=== PATIENT | female | born 1965 | race Caucasian/White ===

== ENCOUNTER 2022-06-21 17:23 | Inpatient (IN) ==
[2022-06-20] MEDS: Nicotine 21 MG PATCH.TD24 TD PRN (09:51)
[2022-06-20] MEDS: Aspirin 81 MG TAB.CHEW PO SCH (09:51)
[2022-06-20] MEDS: Azithromycin 500 MG in 0.9 % Sodium Chloride 250 ML IVPB SCH (09:52)
[2022-06-20] MEDS: Budesonide/Formoterol 80/4.5 1 PUFF INH IH SCH (10:03)
[2022-06-20] MEDS: Ipratropium/Albuterol Neb 3 ML IH PRN ×3 (10:04→20:30)
[2022-06-20] MEDS: MethylPREDNISolone 40 MG/ML VIAL IVP SCH ×3 (12:31→23:21)
[2022-06-20] MEDS: Acetaminophen 325 MG TABLET PO PRN ×2 (12:31→19:33)
[2022-06-20 17:48] LABS: Adenovirus Not Detected (Not Detect); Bordetella Pertussis Not Detected (Not Detect); Chlamydophila pneumoniae Not Detected (Not Detect); Coronavirus 229E Not Detected (Not Detect); Coronavirus HKU1 Not Detected (Not Detect); Coronavirus NL63 Not Detected (Not Detect); Coronavirus OC43 Not Detected (Not Detect); Human Metapneumovirus Not Detected (Not Detect); Human Rhinovirus/Enterovirus Not Detected (Not Detect); Influenza A Subtype 2009 H1 Not Detected (Not Detect); Influenza B Not Detected (Not Detect); Mycoplasma pneumoniae Not Detected (Not Detect); Parainfluenza Virus 1 Not Detected (Not Detect); Parainfluenza Virus 2 Not Detected (Not Detect); Parainfluenza Virus 3 Not Detected (Not Detect); Parainfluenza Virus 4 Not Detected (Not Detect); Respiratory Syncytial Virus Not Detected (Not Detect); SARS-CoV-2 Not Detected (Not Detect)
[2022-06-21] MEDS: *HR* Enoxaparin 40 MG/0.4 ML SYRINGE SQ SCH (05:19)
[2022-06-21] MEDS: MethylPREDNISolone 40 MG/ML VIAL IVP SCH ×2 (05:19→14:08)
[2022-06-21 05:45] LABS: Basophils % 0.1 %; Hematocrit 38.3 % (35.3-44.9); Hemoglobin 12.9 g/dL (11.5-15.4); Immature Granulocytes % 0.7 % (0-4); Lymphocytes # 0.8 K/mcL (0.6-4.6); Lymphocytes % 6.6 %; Mean Corpuscular HGB Conc 33.7 g/dL (31.6-35.5); Mean Corpuscular Hemoglobin 30.6 pg (28.0-33.3); Mean Corpuscular Volume 90.8 fL (83.0-100.0); Mean Platelet Volume 10.7 fL (9.4-12.4); Monocytes # 0.2 K/mcL (0.0-1.3); Monocytes % 1.9 %; Platelet Count 272 K/mcL (140-400); Red Blood Count 4.22 M/mcL (3.82-4.97); Red Cell Distribution Width 13.3 % (11.5-14.5); Segmented Neutrophils % 90.7 %; White Blood Count 11.5 K/mcL (4.3-11.1)
[2022-06-21 05:49] LABS: Neutrophils # 10.4 K/mcL (1.6-8.9)
[2022-06-21 05:58] LABS: BUN/Creatinine Ratio 27 (6-26); Blood Urea Nitrogen 13 mg/dL (6-20); Calcium 9.8 mg/dL (8.6-10.3); Carbon Dioxide 30 mEq/L (23-29); Chloride 102 mEq/L (98-107); Glucose 141 mg/dL (70-105); Osmolality,Calculated 288 (280-300); Sodium 138 mEq/L (136-145); eGFR For African Americans > 60 (> 60); eGFR For Non-African Americans > 60 (> 60)
[2022-06-21] MEDS: Nicotine 21 MG PATCH.TD24 TD PRN (08:08)
[2022-06-21] MEDS: Aspirin 81 MG TAB.CHEW PO SCH (08:08)
[2022-06-21] MEDS: Azithromycin 500 MG in 0.9 % Sodium Chloride 250 ML IVPB SCH (08:09)
[2022-06-21] MEDS: Acetaminophen 325 MG TABLET PO PRN ×2 (08:09→19:32)
[2022-06-21] MEDS: Budesonide/Formoterol 80/4.5 1 PUFF INH IH SCH (09:21)
[~2022-06-21 17:23] MED LIST: Azithromycin 250 MG TABLET PO SCH; Naloxone 0.4 MG/ML INJ IVP PRN; PREDNISONE 10 MG PO SCH
[2022-06-21] MEDS ORDERED: MethylPREDNISolone 40 MG/ML VIAL IVP SCH (18:00)
[2022-06-21] MEDS: Ipratropium/Albuterol Neb 3 ML IH PRN (20:46)
[2022-06-22] MEDS: *HR* Enoxaparin 40 MG/0.4 ML SYRINGE SQ SCH (04:25)
[2022-06-22 05:03] LABS: Basophils % 0.1 %; Eosinophils % 0.4 %; Hemoglobin 13.3 g/dL (11.5-15.4); Immature Granulocytes % 0.4 % (0-4); Lymphocytes % 29.1 %; Mean Corpuscular HGB Conc 33.3 g/dL (31.6-35.5); Mean Corpuscular Hemoglobin 30.2 pg (28.0-33.3); Mean Corpuscular Volume 90.9 fL (83.0-100.0); Mean Platelet Volume 10.3 fL (9.4-12.4); Monocytes # 0.8 K/mcL (0.0-1.3); Monocytes % 7.6 %; Neutrophils # 6.5 K/mcL (1.6-8.9); Platelet Count 261 K/mcL (140-400); Red Cell Distribution Width 13.5 % (11.5-14.5); Segmented Neutrophils % 62.4 %; White Blood Count 10.3 K/mcL (4.3-11.1)
[2022-06-22 05:17] LABS: BUN/Creatinine Ratio 36 (6-26); Blood Urea Nitrogen 22 mg/dL (6-20); Calcium 9.5 mg/dL (8.6-10.3); Carbon Dioxide 31 mEq/L (23-29); Chloride 101 mEq/L (98-107); Glucose 95 mg/dL (70-105); Magnesium 2.1 mg/dL (1.6-2.6); Osmolality,Calculated 291 (280-300); Potassium 3.2 mEq/L (3.5-5.1); Sodium 139 mEq/L (136-145); eGFR For African Americans > 60 (> 60); eGFR For Non-African Americans > 60 (> 60)
[2022-06-22] MEDS: Budesonide/Formoterol 80/4.5 1 PUFF INH IH SCH (07:22)
[2022-06-22 07:24] VITALS: TEMP 98.1
[2022-06-22] MEDS ORDERED: predniSONE 20 MG TABLET PO SCH (09:00)
[2022-06-22] MEDS ORDERED: Azithromycin 250 MG TABLET PO SCH (09:00)
[2022-06-22] MEDS: Aspirin 81 MG TAB.CHEW PO SCH (09:59)
[2022-06-22] MEDS: Acetaminophen 325 MG TABLET PO PRN (09:59)
[2022-06-22 11:45] VITALS: BP 97/64; PULSE 84; RESP 16; O2SAT 98
== END 2022-06-22 12:30 | disposition home health service (06) | DRG 133 ==
LOC: INPGRE
PROVIDERS: ADMIT Internal Medicine; ATTEND Internal Medicine